=== PATIENT | male | born 1995 | race Hispanic/Latino ===

== ENCOUNTER 2024-12-06 09:59 | Emergency (ER) | payer SELFPAY ==
[~2024-12-06] VITALS: Ht 167.6 cm; Wt 64.2 kg
[2024-12-06] MEDS: LIDOCAINE 2% MDV 20 ML VIAL SC ONE (12:10)
[2024-12-06] MEDS ORDERED: IBUP-1022 PO (12:37)
[2024-12-06] MEDS ORDERED: SULF1TAB23 PO (12:37)
[2024-12-06] MEDS: IBUPROFEN 600 MG TAB PO ONE (12:45)
[2024-12-06 12:54] VITALS: BP 131/87; TEMP 97.8; O2SAT 100
== END 2024-12-06 12:59 | disposition home or self-care (01) ==
LOC: M ED 09:59
DX: L03.011 Cellulitis of right finger (principal); S63.612A Unspecified sprain of right middle finger, initial encounter; X50.0XXA Overexertion from strenuous movement or load, initial encounter; Y92.009 Unspecified place in unspecified non-institutional (private) residence as the place of occurrence of the external cause; Y93.89 Activity, other specified; Y99.9 Unspecified external cause status